=== PATIENT | male | born 1980 | race Caucasian/White ===

== ENCOUNTER 2025-03-25 01:44 | Emergency (ER) | payer SELFPAY ==
[2025-03-25] VITALS (9 sets, daily range): BP systolic 101–114; BP diastolic 56–68; PULSE 83–97; RESP 16–18; TEMP 36.6; O2SAT 95–99; BMI 28.0
--- NOTE | 2025-03-25 01:55 | DI.RAD.S_ITS ---
PROCEDURE: XR CHEST 2V INDICATIONS: cough fever TECHNIQUE: 2 views of the chest were acquired. COMPARISON: None. FINDINGS AND IMPRESSION: Left lung consolidation, mostly in the lingula, likely infectious. Consider future imaging surveillance to assess for resolution. No drainable effusions. Normal heart size. Mild degenerative osseous changes. No significant changes from the preliminary report. Dictated by: Claudio Potts M.D. on 03/25/2025 at 7:53 Approved by: Claudio Potts M.D. on 03/25/2025 at 7:54
--- NOTE | 2025-03-25 01:57 | ED_ITS ---
HPI - URI/Sore Throat General Chief Complaint: Upper Respiratory Symptoms Stated Complaint: Chest Pressure, Fever, Cough Time Seen by Provider: 03/25/25 01:46 History of Present Illness HPI Narrative: Patient is a 45-year-old male presenting to day with upper respiratory like symptoms. He reports that yesterday he started feeling poorly. He has had fever body aches and cough. Reports he does smoke cigarettes. Feels like he is short of breath sometimes also feels like his chest has a ?bruise in hurts when he breathes. His mom was just diagnosed with a ammonia and he thinks he might have pneumonia as well. He is also worried about an abscess on his neck which appears to be draining. Related Data Previous Rx's ?Medication ?Instructions ?Recorded albuterol sulfate 90 mcg/actuation 2 puff inhalation Q 4-6H PRN 03/25/25 aerosol inhaler shortness of breath or wheez ing #8.5 grams amoxicillin 500 mg capsule 1,000 mg (2 x 500 mg) PO TI D 5 03/25/25 days #30 caps azithromycin 250 mg tablet See Rx Instructions PO .COM PLEX #6 03/25/25 tabs prednisone 20 mg tablet 40 mg (2 x 20 mg) PO DAILY # 10 tabs 03/25/25 Allergies Allergy/AdvReac Type Severity Reaction Status Date / Time No Known Drug Allergies Allergy Verified 03/25/25 01:55 Exam Initial Vital Signs Initial Vital Signs: Vital Signs Blood Pressure 112/68 03/25/25 01:51 GENERAL: Alert 45-year-old male not feel well and in [no acute] distress. HEENT: Head atraumatic,EOMI, pupils reactive, face symmetric, [moist] mucous membranes CARDIOVASCULAR: Regular rate and rhythm without murmurs, rubs or gallops. RESPIRATORY: Decreased breath sounds bilaterally ABDOMEN: Soft, nontender. Normoactive bowel sounds all 4 quadrants. No guarding or rebound. EXTREMITIES: Normal range of motion, no clubbing or edema. Neurovascularly intact NEUROLOGICAL: Alert and oriented x4.Normal gait and speech. Cranial nerves II through XII grossly intact. SKIN: Right neck erythema noted no significant fluctuation draining noted Course Orders Ordered: ED Orders 03/25/25 01:55 Chest [XR chest 2V] Stat Covid-19 + FLU A/B + RSV - PCR Stat EKG-12 Lead Stat Discontinued Medications Albuterol/Ipratropium (Albuterol/Ipratropium 3 Ml Ampul) 3 ml INH NOW ONE Stop: 03/25/25 01:56 Last Admin: 03/25/25 02:17 Dose: 3 ml Amoxicillin (Amoxicillin 250 Mg Capsule) 1,000 mg PO NOW ONE Stop: 03/25/25 02:53 Last Admin: 03/25/25 02:59 Dose: 1,000 mg Azithromycin (Azithromycin 250 Mg Tablet) 500 mg PO NOW ONE Stop: 03/25/25 02:53 Last Admin: 03/25/25 03:00 Dose: 500 mg Vital Signs Vital signs: Vital Signs - 8 hr 03/25/25 01:51 03/25/25 01:55 03/25/25 01:57 Temperature 97.9 F Pulse Rate 97 H 85 Respiratory Rate 18 Blood Pressure 112/68 112/68 Pulse Oximetry 98 96 Oxygen Delivery Method Room Air Fraction of Inspired Oxygen 03/25/25 01:57 03/25/25 02:00 03/25/25 02:00 Temperature Pulse Rate 83 Respiratory Rate Blood Pressure 109/66 107/62 Pulse Oximetry 95 Oxygen Delivery Method Fraction of Inspired Oxygen 03/25/25 02:13 03/25/25 02:13 03/25/25 02:15 Temperature Pulse Rate 89 Respiratory Rate Blood Pressure 103/56 L 101/58 L Pulse Oximetry 96 Oxygen Delivery Method Fraction of Inspired Oxygen 03/25/25 02:15 03/25/25 02:19 03/25/25 02:30 Temperature Pulse Rate 84 84 83 Respiratory Rate 16 Blood Pressure Pulse Oximetry 97 99 97 Oxygen Delivery Method Room Air Fraction of Inspired Oxygen 21 03/25/25 02:30 03/25/25 02:45 03/25/25 02:45 Temperature Pulse Rate 84 Respiratory Rate Blood Pressure 106/59 L 114/61 Pulse Oximetry 95 Oxygen Delivery Method Room Air Fraction of Inspired Oxygen MDM - URI/Sore Throat Lab Data Labs: Lab Results 03/25/25 Range/Units 01:56 SARS-CoV-2 (PCR) Negative (Negative) Influenza A (RT-PCR) Flu a negative (NEGATIVE) Influenza B (RT-PCR) Flu b negative (NEGATIVE) RSV (PCR) Negative (Negative) Imaging Data Chest x-ray: My Impression: Left lower lobe pneumonia Radiologist's Impression: Preliminary report: Consolidation in the lingula and possibly left lower lobe consistent with pneumonia ECG Data Attestation: I personally reviewed and interpreted this ECG as follows: Prior ECG tracings: not available for review Interpretation: Normal sinus rhythm rate 87 OK interval 150 QRS [address] changes no T- wave inversion Q-wave noted in lead 3 MDM Narrative Medical decision making narrative: Patient is a 45-year-old male history of smoking presenting today with cough fever. He does have some decreased breath sounds but no wheezing or conversational dyspnea. He is given albuterol which does improve his breathing. EKGs does not show any evidence of ischemia viral panel is negative. X-ray reviewed by me does show some pneumonia. Given 1st dose of antibiotics here in the ED Discharge Plan Departure Patient Disposition: Home Clinical Impression: Pneumonia Instructions: DI for Pneumonia -- Adult Activity Restrictions/Additional Instructions: *You have been diagnosed with pneumonia *What to do: At this time your viral panel is negative but it does look like you have pneumonia. Your antibiotics will take about 2-3 days before you start feeling better *Continue to take medications as directed Amoxicillin 1000 mg 3 times a day for 5 days Azithromycin take as directed once daily for 5 days Prednisone 40 mg once a day for 5 days Albuterol inhaler 1-2 puffs every 4 hours if needed for coughing or shortness of breath *Follow up with your primary care provider in 2-3 days or call [phone] *Return to ER if you should have increased shortness of breath, chest pain, confusion [place] weakness or any new, worsening or concerning symptoms Prescriptions: New amoxicillin 500 mg capsule 1,000 mg PO TID 5 Days Qty: 30 0RF azithromycin 250 mg tablet See Rx Instructions PO .COMPLEX Qty: 6 0RF Rx Instructions: For 250 mg dose pack: take 500 mg today (day 1), then 250 mg for 4 days (days 2-5) albuterol sulfate 90 mcg/actuation HFA aerosol inhaler 2 puff INHALATION Q4-6H PRN (Reason: shortness of breath or wheezing) Qty: 8.5 0RF prednisone 20 mg tablet 40 mg PO DAILY Qty: 10 0RF Referrals: Sebastien Miranda MD [Primary Care Provider, Internal Medicine] Stand Alone Forms: Patient Portal/API
--- NOTE | 2025-03-25 02:06 | EKG_ITS ---
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
[2025-03-25] MEDS: ALBUTEROL/IPRATROPIUM 3 ML AMPUL INH (02:17)
[2025-03-25 02:41] LABS: COVID-19 CEPHEID 4-PLEX PCR Negative (Negative); Influenza A - CEPHEID Flu A NEGATIVE (NEGATIVE); Influenza B - CEPHEID Flu B NEGATIVE (NEGATIVE)
[2025-03-25] MEDS: AMOXICILLIN 250 MG CAPSULE 1000 MG PO (02:59)
[2025-03-25] MEDS: AZITHROMYCIN 250 MG TABLET 500 MG PO (03:00)
== END 2025-03-25 03:11 | disposition home or self-care (01) ==
PROVIDERS: Emergency Provider Emergency Medicine; PCP Internal Medicine
DX: J18.9 Pneumonia, unspecified organism (principal); R07.9 Chest pain, unspecified; F17.210 Nicotine dependence, cigarettes, uncomplicated
CPT/HCPCS: 71046; 87637; 93005; 93010; 94640; 99283; 99284